=== PATIENT | male | born 1985 | race Two or more races ===

== ENCOUNTER 2020-10-22 16:12 | Observation (INO) | payer BC ==
[~2020-10-22] VITALS: Ht 162.6 cm; Wt 64.4 kg
[2020-10-22] MEDS ORDERED: ASPIRIN 81 MG CHEW TAB PO STA (16:35)
[2020-10-22] MEDS ORDERED: ASPIRIN 81 MG CHEW TAB PO ONE (16:45)
[2020-10-22 17:00] LABS: BASOPHILS # (AUTO) 0.1 (0.0-0.1); EOSINOPHILS # (AUTO) 0.1 (0.0-0.4); EOSINOPHILS % 1.6 % (0.0-6.0); HEMATOCRIT 45.4 % (38.2-49.6); HEMOGLOBIN 13.4 g/dL (14.0-18.0); LYMPHOCYTES # (AUTO) 1.9 (1.0-3.2); LYMPHOCYTES % 30.2 % (18.0-39.1); MEAN CORPUSCULAR HEMOGLOBIN 18.3 pg (28-32); MEAN CORPUSCULAR HGB CONC 29.5 g/dL (31-35); MONOCYTES # (AUTO) 0.5 (0.2-0.8); MONOCYTES % 7.3 % (4.4-11.3); NEUTROPHILS # (AUTO) 3.7 (2.1-6.9); NEUTROPHILS % 59.4 % (38.7-80.0); PLATELET COUNT 240 x10e3/uL (140-360); RED CELL DISTRIBUTION WIDTH 18.5 % (11.7-14.4)
[2020-10-22 17:01] LABS: RED BLOOD COUNT 7.32 x10e6/uL (4.3-5.7)
[2020-10-22 17:16] LABS: ALANINE AMINOTRANSFERASE 38 IU/L (0-55); ALBUMIN 4.6 g/dL (3.5-5.0); ALBUMIN/GLOBULIN RATIO 1.4 (0.8-2.0); ALKALINE PHOSPHATASE 54 IU/L (40-150); ANION GAP 14.8 mmol/L (8-16); BLOOD UREA NITROGEN 14 mg/dL (7-26); BUN/CREATININE RATIO 13 (6-25); CALCIUM 9.1 mg/dL (8.4-10.2); CARBON DIOXIDE 25 mmol/L (22-29); CHLORIDE 102 mmol/L (98-107); CREATINE KINASE 711 IU/L (30-200); EST GLOMERULAR FILTRATION RATE > 60 ML/MIN (60-); GLUCOSE 100 mg/dL (74-118); POTASSIUM 3.8 mmol/L (3.5-5.1); SODIUM 138 mmol/L (136-145)
[2020-10-22] MEDS ORDERED: NITROGLYCERIN 0.4 MG SUBL SL PRN (18:00)
[2020-10-22] MEDS ORDERED: MORPHINE SULFATE INJ 2 MG/ML SYR IV PRN (18:00)
[2020-10-22] MEDS ORDERED: ONDANSETRON HCL INJ 2MG/ML 2ML 2 MG/ML VIAL IV PRN (18:00)
[2020-10-22] MEDS ORDERED: POLYETHYLENE GLYCOL 3350 17 GM PACK PO PRN (20:00)
[2020-10-22] MEDS ORDERED: ACETAMINOPHEN 325 MG TAB PO PRN (20:00)
[2020-10-22] MEDS ORDERED: METOPROLOL TARTRATE INJ 1 MG/ML VIAL IV PRN (20:00)
[2020-10-22] MEDS ORDERED: TEMAZEPAM 7.5 MG CAP PO PRN (20:00)
[2020-10-22 21:26] VITALS: BP 119/71
[2020-10-22 21:57] VITALS: BP 119/71
[2020-10-23 02:26] LABS: CREATINE KINASE MB 1.6 ng/mL (0-5.0)
[2020-10-23 04:00] VITALS: BP 116/69
[2020-10-23 05:26] LABS: BASOPHILS % 0.5 % (0.0-1.0); EOSINOPHILS # (AUTO) 0.1 (0.0-0.4); EOSINOPHILS % 1.6 % (0.0-6.0); HEMOGLOBIN 13.8 g/dL (14.0-18.0); LYMPHOCYTES # (AUTO) 3.1 (1.0-3.2); LYMPHOCYTES % 36.7 % (18.0-39.1); MEAN CORPUSCULAR HEMOGLOBIN 18.4 pg (28-32); MEAN CORPUSCULAR VOLUME 61.4 fL (81-99); MONOCYTES # (AUTO) 0.7 (0.2-0.8); MONOCYTES % 8.1 % (4.4-11.3); NEUTROPHILS # (AUTO) 4.5 (2.1-6.9); PLATELET COUNT 269 x10e3/uL (140-360); RED CELL DISTRIBUTION WIDTH 18.6 % (11.7-14.4)
[2020-10-23 05:28] LABS: RED BLOOD COUNT 7.49 x10e6/uL (4.3-5.7)
[2020-10-23 06:04] LABS: ANION GAP 13.9 mmol/L (8-16); BLOOD UREA NITROGEN 15 mg/dL (7-26); BUN/CREATININE RATIO 12 (6-25); CALCIUM 9.2 mg/dL (8.4-10.2); CARBON DIOXIDE 26 mmol/L (22-29); CHLORIDE 104 mmol/L (98-107); CREATININE, SERUM 1.23 mg/dL (0.72-1.25); EST GLOMERULAR FILTRATION RATE > 60 ML/MIN (60-); GLUCOSE 89 mg/dL (74-118); PHOSPHORUS 4.7 MG/DL (2.3-4.7); POTASSIUM 3.9 mmol/L (3.5-5.1); SODIUM 140 mmol/L (136-145)
[2020-10-23 06:24] LABS: CHOL/HDL RATIO 5.6 (3.9-4.7)
[2020-10-23 06:30] LABS: THYROID STIMULATING HORMONE 2.185 uIU/mL (0.350-4.940)
[2020-10-23] MEDS ORDERED: SODIUM CHLORIDE 0.45% 1,000 ML IV ONE (07:00)
[2020-10-23] MEDS ORDERED: FAMOTIDINE 20 MG TAB PO SCH (07:30)
[2020-10-23 07:51] VITALS: BP 124/97
[2020-10-23 08:30] VITALS: BP 124/97
[2020-10-23] MEDS ORDERED: DOCUSATE SODIUM 100 MG CAP PO SCH (09:00)
[2020-10-23] MEDS ORDERED: ASPIRIN 81 MG ENTERIC COATED PO SCH (09:00)
[2020-10-23 11:51] VITALS: BP 109/64
== END 2020-10-23 12:35 | disposition home or self-care (01) ==
LOC: ER 16:30 → ERHOLD 17:54 → MED/SURG 21:12
PROVIDERS: ADMIT Internal Medicine; ATTEND Internal Medicine
DX: R07.9 Chest pain, unspecified (principal); R63.5 Abnormal weight gain; Z68.28 Body mass index [BMI] 28.0-28.9, adult; Z20.822 Contact with and (suspected) exposure to COVID-19
CPT/HCPCS: 36415 ×2; 71045; 80048; 80053; 80061; 82550 ×2; 82553 ×2; 83036; 83735; 83880; 84100; 84443; 84484 ×2; 85025 ×2; 93005; 99284; G0378 ×2; U0002